=== PATIENT | female | born 1985 | race Caucasian/White ===

== ENCOUNTER 2018-11-09 06:55 | Inpatient (IN) ==
[2018-11-09] MEDS ORDERED: Ketorolac 30 MG/ML VIAL IVP ONE (07:24)
[2018-11-09] MEDS ORDERED: Piperacillin/Tazobactam 3.375 GM in Water for inj. (sterile) 20 ML IVP ONE (07:24)
[2018-11-09] MEDS ORDERED: 0.9 % Sodium Chloride 1,000 ML IVC ONE (07:24)
[2018-11-09] MEDS ORDERED: Prochlorperazine 10 MG/2 ML VIAL IVP STA (07:28)
--- NOTE | 2018-11-09 07:29 | Emergency Department Note ---
Disposition Clinical Impression: Cellulitis Qualifiers: Site of cellulitis: trunk Site of cellulitis of trunk: abdominal wall Qualified Code(s): L03.311 - Cellulitis of abdominal wall Disposition: Admitted As Inpatient Condition: Good Referrals: NONE,PCP [Primary Care Provider] - Forms: ED Satisfaction Letter Time of Disposition: 10:09 Headache HPI - General Chief Complaint: ED Headache Stated Complaint: foggy mind, heart palp, cant urinate, infection Time Seen by Provider: 11/09/18 07:10 Source: patient, family Mode of arrival: private vehicle Limitations: no limitations Nursing Notes Reviewed: Yes Vital Signs Reviewed: Yes - History of Present Illness HPI Narrative: 33F with Pmhx of hypothyroidism, fibromyalgia, hidradenitis suppurativa that was seen at this facility on Monday and dx with a UTI and cellulitis, placed on antibiotics, and has subsequently gotten worse. Pt reports worsening of neck pain, increased nausea, headache, and spreading of her stomach rash which was dx as cellulitis at her previous visit. She also notes that she feels "foggy" in her head and is having trouble processing information. Of note, she also stopped all of her medications "cold-turkey" approx 1 month ago. Pain Scale: 0 - Related Data Home Medications Medication Instructions Recorded Confirmed No Known Home Drugs 11/09/18 11/09/18 Allergies Allergy/AdvReac Type Severity Reaction Status Date / Time Sulfa (Sulfonamide Allergy Hives Verified 06/28/18 00:13 Antibiotics) gabapentin AdvReac Nightmare Verified 06/28/18 00:13 Review of Systems: In addition to that documented in the HPI above, the additional ROS was obta ined: Constitutional: Reports fevers and chills Eyes: Denies vision changes ENMT: Denies sore throat CV: Denies chest pain Resp: Denies SOB GI: Denies vomiting or diarrhea Reports nausea : Denies painful urination Reports inability to urinate MSK: Denies recent trauma Skin: Reports lower abdominal rash Neuro: Denies new numbness or tingling or weakness Reports headache Endocrine: Denies unexpected weight loss Heme: Denies bleeding disorders Headache PMH - Past Medical History Medical history: Reports: fibromyalgia, thyroid disease, other Psychiatric history: Reports: anxiety, panic disorder - Social History Smoking Status: Current some day smoker Alcohol use: Reports: none Drug use: Reports: none Physical Exam General: A&O x 3. No acute distress. Well developed, well nourished. Head: atraumatic, normocephalic. ENT: No conjunctival injection, no scleral icterus. PERRLA. EOMI. Oropharynx non- erythematous. mucous membranes moist. Neck: Supple, full ROM, midline cervical tenderness to palpation. Neuro: No focal deficits, no speech deficit, no facial droop, mentating well. BUE/BLE Str 5/5. Pulm: Lungs CTAB A/P. No wheezes, rales, ronchi. Cardio: RRR no m/r/g. Chest not tender to palpation. Abd: Soft, non-distended. Normoactive bowel sounds. Erythematous rash covering lower abdominal wall, tender to touch. Extremities: Radial pulses 2+ trell, dorsalis pedis/posterior tibialis 2+ trell. No LE edema. No cyanosis, clubbing. Skin: Other than noted above, warm, dry, intact. Psych: Appropriate mood and affect. Answers questions appropriately. Cooperative with exam. - General Limitations: no limitations General appearance: alert, in no apparent distress Course Vital Signs Temperature 99.0 F 11/09/18 06:59 Pulse Rate 99 11/09/18 06:59 Respiratory Rate 16 11/09/18 06:59 Blood Pressure 128/88 11/09/18 06:59 O2 Sat by Pulse Oximetry 97 11/09/18 06:59 Temperature 99.0 F 11/09/18 06:59 Pulse Rate 63 11/09/18 09:58 Respiratory Rate 18 11/09/18 09:58 Blood Pressure 107/58 11/09/18 09:58 O2 Sat by Pulse Oximetry 97 11/09/18 09:58 Oxygen Delivery Oxygen Delivery Room Air Headache - MDM Narrative Medical decision making narrative: 33-year-old female with complaint of increasing rash to her stomach, headache, nausea, unable to urinate. Patient was able to give a urine sample soon after arriving, urine was dark but she did not express any difficulty in urinating when giving the sample. Patient was also complaining of altered mental status when she first arrived and thought that it was Monday when it is Monday, we explored the possibility of doing a lumbar puncture to rule out meningitis, however given the patient's white blood cell count was normal and that I told her the lumbar puncture would make her headache worse tomorrow she decided that the procedure was low yield and that she did not want to pursue it at this time. We discussed the risks and benefits of the procedure and she was still confident that she did not want the lumbar puncture. Patient's white blood cell count has improved from the other day, however her rash to her stomach has gotten worse and has not responded to oral antibiotics. Patient will need to be admitted for IV antibiotics given her failure of outpatient management. Results of the workup including any imaging and/or labwork was shared with the patient at bedside. Patient was given an opportunity to ask questions at bedside and all of their concerns were addressed. Patient v erbalized understanding and agreement with plan of care. Pt remained stable while in the department. Patient was admitted to the hospitalist Dr. Roy who agreed to accept the patient to his service. - Medical Records Medical records reviewed: Yes I reviewed the patient's medical records. - Lab Data Lab results reviewed: Yes I reviewed the patient's lab results. Result diagrams: 11/09/18 07:33 11/09/18 07:33 Lab Results 11/09/18 11/09/18 11/09/18 Range/Units 07:33 07:33 07:39 WBC 7.0 (4.3-11.1) K/mcL RBC 3.71 L (3.82-4.97) M/mcL Hgb 11.8 D (11.5-15.4) g/dL Hct 34.9 L (35.3-44.9) % MCV 94.1 (83.0-100.0) fL MCH 31.8 (28.0-33.3) pg MCHC 33.8 (31.6-35.5) g/dL RDW 11.9 (11.5-14.5) % Plt Count 270 (140-400) K/mcL MPV 10.4 (9.4-12.4) fL Immature Gran % 0.4 (0-4) % Seg Neutrophils % 51.3 % Lymphocytes % 31.4 % Monocytes % 9.8 % Eosinophils % 6.2 % Basophils % 0.9 % Neutrophils # 3.6 (1.6-8.9) K/mcL Lymphocytes # 2.2 (0.6-4.6) K/mcL Monocytes # 0.7 (0.0-1.3) K/mcL Eosinophils # 0.4 (0.0-0.6) K/mcL Basophils # 0.1 (0.0-0.2) K/mcL Sodium 139 (136-145) mEq/L Potassium 3.6 (3.5-5.1) mEq/L Chloride 106 (98-107) mEq/L Carbon Dioxide 23 (23-29) mEq/L BUN 8 (6-20) mg/dL Creatinine 0.77 (0.60-1.20) mg/dL Est GFR ( Amer) > 60 (> 60) Est GFR (Non-Af Amer) > 60 (> 60) BUN/Creatinine Ratio 10 (6-26) Glucose 109 H (70-105) mg/dL Calculated Osmolality 287 (280-300) Lactic Acid (0.5-2.2) mmol/L Calcium 9.5 (8.6-10.3) mg/dL Total Bilirubin 0.3 (0.3-1.0) mg/dL Direct Bilirubin 0.0 (0.0-0.2) mg/dL Indirect Bilirubin 0.3 (0.0-1.2) mg/dL AST 20 (13-39) Units/L ALT 30 (7-52) Units/L Alkaline Phosphatase 63 (34-104) Units/L Serum Total Protein 7.1 (6.4-8.9) g/dL Albumin 4.0 (3.5-5.7) g/dL Globulin 3.1 (2.4-3.5) g/dL Albumin/Globulin Ratio 1.3 (1.1-2.2) Lipase 12 (11-82) Units/L TSH 3.728 (0.340-5.600) mcIU/mL Urine Color Yellow (Yellow) Urine Clarity Clear (Clear) Urine pH 6.0 (5.0-8.0) pH Units Ur Specific [place] 1.025 (1.010-1.025) Urine Protein Negative (Neg-Trace) mg/dL Urine Glucose (UA) Normal (Normal) mg/dL Urine Ketones Negative (Negative) mg/dL Urine Blood Moderate H (Negative) Urine Nitrite Negative (Negative) Urine Bilirubin Negative (Negative) Urine Urobilinogen Normal (Normal) mg/dL Ur Leukocyte Esterase Negative (Negative) Urine Microscopic RBC 15-30 H (0-3) per hpf Urine Microscopic WBC 5-15 H (0-3) per hpf Ur Squamous Epith Cells Many H (None-Few) per lpf Urine Bacteria None Seen (None-Few) per hpf Hyaline Casts None Seen (None-Few) per lpf Ur Culture Indicated? YES A (NO) Urine Test (Negative) 11/09/18 11/09/18 Range/Units 07:39 07:46 WBC (4.3-11.1) K/mcL RBC (3.82-4.97) M/mcL Hgb (11.5-15.4) g/dL Hct (35.3-44.9) % MCV (83.0-100.0) fL MCH (28.0-33.3) pg MCHC (31.6-35.5) g/dL RDW (11.5-14.5) % Plt Count (140-400) K/mcL MPV (9.4-12.4) fL Immature Gran % (0-4) % Seg Neutrophils % % Lymphocytes % % Monocytes % % Eosinophils % % Basophils % % Neutrophils # (1.6-8.9) K/mcL Lymphocytes # (0.6-4.6) K/mcL Monocytes # (0.0-1.3) K/mcL Eosinophils # (0.0-0.6) K/mcL Basophils # (0.0-0.2) K/mcL Sodium (136-145) mEq/L Potassium (3.5-5.1) mEq/L Chloride (98-107) mEq/L Carbon Dioxide (23-29) mEq/L BUN (6-20) mg/dL Creatinine (0.60-1.20) mg/dL Est GFR ( Amer) (> 60) Est GFR (Non-Af Amer) (> 60) BUN/Creatinine Ratio (6-26) Glucose (70-105) mg/dL Calculated Osmolality (280-300) Lactic Acid 1.0 (0.5-2.2) mmol/L Calcium (8.6-10.3) mg/dL Total Bilirubin (0.3-1.0) mg/dL Direct Bilirubin (0.0-0.2) mg/dL Indirect Bilirubin (0.0-1.2) mg/dL AST (13-39) Units/L ALT (7-52) Units/L Alkaline Phosphatase (34-104) Units/L Serum Total Protein (6.4-8.9) g/dL Albumin (3.5-5.7) g/dL Globulin (2.4-3.5) g/dL Albumin/Globulin Ratio (1.1-2.2) Lipase (11-82) Units/L TSH (0.340-5.600) mcIU/mL Urine Color (Yellow) Urine Clarity (Clear) Urine pH (5.0-8.0) pH Units Ur Specific [place] (1.010-1.025) Urine Protein (Neg-Trace) mg/dL Urine Glucose (UA) (Normal) mg/dL Urine Ketones (Negative) mg/dL Urine Blood (Negative) Urine Nitrite (Negative) Urine Bilirubin (Negative) Urine Urobilinogen (Normal) mg/dL Ur Leukocyte Esterase (Negative) Urine Microscopic RBC (0-3) per hpf Urine Microscopic WBC (0-3) per hpf Ur Squamous Epith Cells (None-Few) per lpf Urine Bacteria (None-Few) per hpf Hyaline Casts (None-Few) per lpf Ur Culture Indicated? (NO) Urine Test Negative (Negative) - EKG Data EKG attestation: Yes I reviewed and interpreted this EKG. EKG results narrative: Heart rate 91, rhythm sinus, axis normal. Intervals within normal limits. No ST segment elevation or depression noted when compared with old EKG dated 11/06/2018 EKG shows sinus tachycardia which is not present on the current study.
--- NOTE | 2018-11-09 07:39 | Emergency Department Note ---
Disposition Clinical Impression: Cellulitis Qualifiers: Site of cellulitis: trunk Site of cellulitis of trunk: abdominal wall Qualified Code(s): L03.311 - Cellulitis of abdominal wall Disposition: Admitted As Inpatient Condition: Fair Referrals: NONE,PCP [Primary Care Provider] - Forms: ED Satisfaction Letter Time of Disposition: 09:18 General Adult HPI - General Chief complaint: ED Headache Stated complaint: foggy mind, heart palp, cant urinate, infection Time Seen by Provider: 11/09/18 07:10 Source: patient, family Mode of arrival: private vehicle Limitations: no limitations Nursing Notes Reviewed: Yes Vital Signs Reviewed: Yes - History of Present Illness Pain Scale: 0 - Related Data Home Medications Medication Instructions Recorded Confirmed No Known Home Drugs 11/09/18 11/09/18 Allergies Allergy/AdvReac Type Severity Reaction Status Date / Time Sulfa (Sulfonamide Allergy Hives Verified 06/28/18 00:13 Antibiotics) gabapentin AdvReac Nightmare Verified 06/28/18 00:13 Past Medical History - Past Medical History Medical history: Reports: fibromyalgia, thyroid disease, other Psychiatric history: Reports: anxiety, panic disorder - Social History Smoking Status: Current some day smoker Smokeless Tobacco Status: No Alcohol use: Reports: none Drug use: Reports: none Physical Exam - General Limitations: no limitations General appearance: alert, in no apparent distress Course Vital Signs Temperature 99.0 F 11/09/18 06:59 Pulse Rate 99 11/09/18 06:59 Respiratory Rate 16 11/09/18 06:59 Blood Pressure 128/88 11/09/18 06:59 O2 Sat by Pulse Oximetry 97 11/09/18 06:59 Temperature 99.0 F 11/09/18 06:59 Pulse Rate 75 11/09/18 08:30 Respiratory Rate 18 11/09/18 08:30 Blood Pressure 115/64 11/09/18 08:30 O2 Sat by Pulse Oximetry 96 11/09/18 08:30 Oxygen Delivery Oxygen Delivery Room Air Medical Decision Making - [facility] Narrative Medical decision making narrative: 744 hours: I reviewed her labs I did not see any growth on her throat culture nor on her flu which was negative. We will continue the workup on her and determine best course for workup and disposition I think she will need admission since her cellulitis on her abdomen is worsening. 0832 hrs.: Patient's up and ambulatory without difficulty at this time. Labs are back and fairly unremarkable no signs of bacteria in her urine. We talked about doing a spinal tap since she was complaining of a headache and some stiffness in her neck that she has no papilledema here. She is considering that at this time. We will reassess once she has had her medications and see how she is doing and then determine best plan of care. 0918 hrs.: Spoke to her about having a spinal tap done told her about the risks and benefits of that she does not want have the test done. If she does have meningitis it would be most likely viral without any other treatments at this time so I think her decision is okay. I told her however she changes her mind were happy to do that. Due to her cellulitis. Started on IV antibiotics were in a go admit her to the hospital. - Lab Data Result diagrams: 11/09/18 07:33 11/09/18 07:33 Lab Results 11/09/18 11/09/18 11/09/18 Range/Units 07:33 07:33 07:39 WBC 7.0 (4.3-11.1) K/mcL RBC 3.71 L (3.82-4.97) M/mcL Hgb 11.8 D (11.5-15.4) g/dL Hct 34.9 L (35.3-44.9) % MCV 94.1 (83.0-100.0) fL MCH 31.8 (28.0-33.3) pg MCHC 33.8 (31.6-35.5) g/dL RDW 11.9 (11.5-14.5) % Plt Count 270 (140-400) K/mcL MPV 10.4 (9.4-12.4) fL Immature Gran % 0.4 (0-4) % Seg Neutrophils % 51.3 % Lymphocytes % 31.4 % Monocytes % 9.8 % Eosinophils % 6.2 % Basophils % 0.9 % Neutrophils # 3.6 (1.6-8.9) K/mcL Lymphocytes # 2.2 (0.6-4.6) K/mcL Monocytes # 0.7 (0.0-1.3) K/mcL Eosinophils # 0.4 (0.0-0.6) K/mcL Basophils # 0.1 (0.0-0.2) K/mcL Sodium 139 (136-145) mEq/L Potassium 3.6 (3.5-5.1) mEq/L Chloride 106 (98-107) mEq/L Carbon Dioxide 23 (23-29) mEq/L BUN 8 (6-20) mg/dL Creatinine 0.77 (0.60-1.20) mg/dL Est GFR ( Amer) > 60 (> 60) Est GFR (Non-Af Amer) > 60 (> 60) BUN/Creatinine Ratio 10 (6-26) Glucose 109 H (70-105) mg/dL Calculated Osmolality 287 (280-300) Lactic Acid (0.5-2.2) mmol/L Calcium 9.5 (8.6-10.3) mg/dL Total Bilirubin 0.3 (0.3-1.0) mg/dL Direct Bilirubin 0.0 (0.0-0.2) mg/dL Indirect Bilirubin 0.3 (0.0-1.2) mg/dL AST 20 (13-39) Units/L ALT 30 (7-52) Units/L Alkaline Phosphatase 63 (34-104) Units/L Serum Total Protein 7.1 (6.4-8.9) g/dL Albumin 4.0 (3.5-5.7) g/dL Globulin 3.1 (2.4-3.5) g/dL Albumin/Globulin Ratio 1.3 (1.1-2.2) Lipase 12 (11-82) Units/L TSH 3.728 (0.340-5.600) mcIU/mL Urine Color Yellow (Yellow) Urine Clarity Clear (Clear) Urine pH 6.0 (5.0-8.0) pH Units Ur Specific [place] 1.025 (1.010-1.025) Urine Protein Negative (Neg-Trace) mg/dL Urine Glucose (UA) Normal (Normal) mg/dL Urine Ketones Negative (Negative) mg/dL Urine Blood Moderate H (Negative) Urine Nitrite Negative (Negative) Urine Bilirubin Negative (Negative) Urine Urobilinogen Normal (Normal) mg/dL Ur Leukocyte Esterase Negative (Negative) Urine Microscopic RBC 15-30 H (0-3) per hpf Urine Microscopic WBC 5-15 H (0-3) per hpf Ur Squamous Epith Cells Many H (None-Few) per lpf Urine Bacteria None Seen (None-Few) per hpf Hyaline Casts None Seen (None-Few) per lpf Ur Culture Indicated? YES A (NO) Urine Test (Negative) 11/09/18 11/09/18 Range/Units 07:39 07:46 WBC (4.3-11.1) K/mcL RBC (3.82-4.97) M/mcL Hgb (11.5-15.4) g/dL Hct (35.3-44.9) % MCV (83.0-100.0) fL MCH (28.0-33.3) pg MCHC (31.6-35.5) g/dL RDW (11.5-14.5) % Plt Count (140-400) K/mcL MPV (9.4-12.4) fL Immature Gran % (0-4) % Seg Neutrophils % % Lymphocytes % % Monocytes % % Eosinophils % % Basophils % % Neutrophils # (1.6-8.9) K/mcL Lymphocytes # (0.6-4.6) K/mcL Monocytes # (0.0-1.3) K/mcL Eosinophils # (0.0-0.6) K/mcL Basophils # (0.0-0.2) K/mcL Sodium (136-145) mEq/L Potassium (3.5-5.1) mEq/L Chloride (98-107) mEq/L Carbon Dioxide (23-29) mEq/L BUN (6-20) mg/dL Creatinine (0.60-1.20) mg/dL Est GFR ( Amer) (> 60) Est GFR (Non-Af Amer) (> 60) BUN/Creatinine Ratio (6-26) Glucose (70-105) mg/dL Calculated Osmolality (280-300) Lactic Acid 1.0 (0.5-2.2) mmol/L Calcium (8.6-10.3) mg/dL Total Bilirubin (0.3-1.0) mg/dL Direct Bilirubin (0.0-0.2) mg/dL Indirect Bilirubin (0.0-1.2) mg/dL AST (13-39) Units/L ALT (7-52) Units/L Alkaline Phosphatase (34-104) Units/L Serum Total Protein (6.4-8.9) g/dL Albumin (3.5-5.7) g/dL Globulin (2.4-3.5) g/dL Albumin/Globulin Ratio (1.1-2.2) Lipase (11-82) Units/L TSH (0.340-5.600) mcIU/mL Urine Color (Yellow) Urine Clarity (Clear) Urine pH (5.0-8.0) pH Units Ur Specific [place] (1.010-1.025) Urine Protein (Neg-Trace) mg/dL Urine Glucose (UA) (Normal) mg/dL Urine Ketones (Negative) mg/dL Urine Blood (Negative) Urine Nitrite (Negative) Urine Bilirubin (Negative) Urine Urobilinogen (Normal) mg/dL Ur Leukocyte Esterase (Negative) Urine Microscopic RBC (0-3) per hpf Urine Microscopic WBC (0-3) per hpf Ur Squamous Epith Cells (None-Few) per lpf Urine Bacteria (None-Few) per hpf Hyaline Casts (None-Few) per lpf Ur Culture Indicated? (NO) Urine Test Negative (Negative) Attestation Statement - Attestation Attestation: This documentation is done with the assistance of Dragon dictation. Despite efforts made to ensure accuracy, there may be inaccuracies in international editorial producer or spelling and typographical errors. I examined this patient and my medical decision-making was reviewed with the Resident Physician. I agree with the documented findings, disposition and treatment plan as described except to the extent set forth below. Patient was seen and evaluated by Dr. Wright, I agree with their evaluation and management plan, I supervised care the patient's stay. Patient arrives today stating that she thinks she is getting worse infection. She was seen here earlier this week diagnosed with hidradenitis placed on Keflex and clindamycin and it is getting worse. This is across her abdomen does not go down into the groin area. She has no signs of crepitance. She also says she is feeling achy she has got a bit of a headache she does not have true meningeal signs here shows no papilledema no once been ill at home no fever here at this time. We will review her CT scan she had for here noted a check labs and get her feeling better and then determine whether she needs any further workup of a headache spinal tap or CT. Also she needs any reimaging of her abdomen she also has had decreased urination so we will check urinalysis and give her fluids. She is in agreement with this plan as is mom. I reviewed the residents documentation and agree with the residents assessment and plan of care. I have personally had face to face time with the patient. (Brief History, Brief Exam, and MDM) I personally supervised and was present for the rossi/critical portions of the following procedures completed by the resident: EKG was interpreted by the resident under my supervision, I agree with their interpretation.
[2018-11-09 07:56] LABS: Basophils # 0.1 K/mcL (0.0-0.2); Basophils % 0.9 %; Eosinophils # 0.4 K/mcL (0.0-0.6); Eosinophils % 6.2 %; Hematocrit 34.9 % (35.3-44.9); Hemoglobin 11.8 g/dL (11.5-15.4); Immature Granulocytes % 0.4 % (0-4); Lymphocytes # 2.2 K/mcL (0.6-4.6); Lymphocytes % 31.4 %; Mean Corpuscular HGB Conc 33.8 g/dL (31.6-35.5); Mean Corpuscular Hemoglobin 31.8 pg (28.0-33.3); Mean Corpuscular Volume 94.1 fL (83.0-100.0); Mean Platelet Volume 10.4 fL (9.4-12.4); Monocytes # 0.7 K/mcL (0.0-1.3); Monocytes % 9.8 %; Neutrophils # 3.6 K/mcL (1.6-8.9); Platelet Count 270 K/mcL (140-400); Red Blood Count 3.71 M/mcL (3.82-4.97); Red Cell Distribution Width 11.9 % (11.5-14.5); Segmented Neutrophils % 51.3 %
[2018-11-09 08:16] LABS: Bilirubin,Urine Negative (Negative); Blood,Urine Moderate (Negative); Clarity,Urine Clear (Clear); Color,Urine Yellow (Yellow); Glucose,Urine (UA) Normal (Normal); Ketones,Urine Negative (Negative); Leukocyte Esterase,Urine Negative (Negative); Nitrite,Urine Negative (Negative); Protein,Urine Negative (Neg-Trace); Specific Gravity,Urine 1.025 (1.010-1.025); Urobilinogen,Urine Normal (Normal)
[2018-11-09 08:18] LABS: Alanine Aminotransferase 30 Units/L (7-52); Albumin/Globulin Ratio 1.3 (1.1-2.2); Alkaline Phosphatase 63 Units/L (34-104); Aspartate Amino Transferase 20 Units/L (13-39); BUN/Creatinine Ratio 10 (6-26); Bilirubin,Indirect 0.3 mg/dL (0.0-1.2); Bilirubin,Total 0.3 mg/dL (0.3-1.0); Blood Urea Nitrogen 8 mg/dL (6-20); Calcium 9.5 mg/dL (8.6-10.3); Carbon Dioxide 23 mEq/L (23-29); Chloride 106 mEq/L (98-107); Globulin 3.1 g/dL (2.4-3.5); Glucose 109 mg/dL (70-105); Lipase 12 Units/L (11-82); Osmolality,Calculated 287 (280-300); Potassium 3.6 mEq/L (3.5-5.1); Sodium 139 mEq/L (136-145); Total Protein 7.1 g/dL (6.4-8.9); eGFR For African Americans > 60 (> 60); eGFR For Non-African Americans > 60 (> 60)
[2018-11-09 08:20] LABS: Bacteria,Urine None Seen per hpf (None-Few); Hyaline Casts,Urine None Seen per lpf (None-Few); RBC,Urine 15-30 per hpf (0-3); Squamous Epithelial Cell,Urine Many per lpf (None-Few)
[2018-11-09 08:30] LABS: Thyroid Stimulating Hormone 3.728 mcIU/mL (0.340-5.600)
[2018-11-09] MEDS ORDERED: Naloxone 0.4 MG/ML INJ IVP PRN (12:47)
[2018-11-09] MEDS ORDERED: Acetaminophen 325 MG TABLET PO PRN (12:47)
[2018-11-09] MEDS: Ondansetron 4 MG/2 ML VIAL IVP PRN (15:00)
[2018-11-09] MEDS: *HR* HYDROcodone/Acet 5/325 mg TABLET PO PRN (15:00)
--- NOTE | 2018-11-09 15:23 | Internal Med History&Physical ---
Date of Encounter: 11/09/18 Time of Encounter: 15:23 Internal Medicine - H&P: HPI Chief complaint: Abdominal wall cellulities Admitted From: Emergency Dept Plans for Post Hospital Care: Home History of present illness: Ms. Ron is a 33 year old female with no significant past medical history presented to ER complaining about a progressively worsening lower abdominal wall erythema and pain. She noticed mild erythema in lower abdomen wall region on Monday, which is progressively worsening now. She denied any trauma. She denied any previous MRSA infections. She denied any similar infections in the past. She also c/o head ache and neck pain since this abdominal pain started. She denied any confusion / nausea / vomitings / visual changes. Past Med Surg Social Fam HX - Past Medical History Medical history: fibromyalgia, thyroid disease, other Additional medical history: tachycardia, anemia Psychiatric history: anxiety, panic disorder - Past Surgical History Surgical History: hysterectomy Additional surgical history: back surgery - Social History Smoking Status: Current some day smoker Packs per day: 1/ Smokeless Tobacco Status: No Alcohol use: none Drug use: none - Family History Mother Hx Family Cardiac Disorders: No Hx Family Respiratory Disorders: No Hx Family Cancer: Yes (skin cancer) Hx Family GI Disorders: No Hx Family Genitourinary Disorders: No Hx Family Endocrine Disorder: Yes (thyroid) Hx Family Musculoskeletal Disorders: No Hx Family Neuromuscular Disorders: No Hx Family Neurologic Disorders: No Hx Family HEENT Disorders: No Hx Family Autoimmune Disorders: No Hx Family Reproductive Disorders: No Hx Family Psychosocial Disorders: No Father Hx Family Cardiac Disorders: Yes (5 stents) Hx Family Respiratory Disorders: No Hx Family Cancer: No Hx Family GI Disorders: No Hx Family Genitourinary Disorders: No Hx Family Endocrine Disorder: Yes (DM, thyroid) Hx Family Musculoskeletal Disorders: No Hx Family Neuromuscular Disorders: No Hx Family Neurologic Disorders: No Hx Family HEENT Disorders: No Hx Family Autoimmune Disorders: No Hx Family Reproductive Disorders: No Hx Family Psychosocial Disorders: No Internal Medicine - H&P: Meds No Known Home Drugs 11/09/18 [History] Allergy/AdvReac Type Severity Reaction Status Date / Time Sulfa (Sulfonamide Allergy Hives Verified 06/28/18 00:13 Antibiotics) gabapentin AdvReac Nightmare Verified 06/28/18 00:13 All Systems PM: A 10-system review of systems was performed and is negative for pertinent findings except as documented above in the HPI. Review of systems: All the systems are reviewed everything is benign except the systems and symptoms I mentioned in the history of present illness - Constitutional Vitals: Temp Pulse Resp BP Pulse Ox 98.2 F 74 16 115/65 98 11/09/18 11:11 11/09/18 11:11 11/09/18 11:11 11/09/18 11:11 11/09/18 11:11 General appearance: Present: cooperative, mild distress (with pain), A&O X 3, answers questions appropriately Exam: a - Head Head exam: Present: atraumatic, normal inspection - Neck Neck exam general surgery: Present: normal inspection, supple - Respiratory Respiratory exam: Present: decreased breath sounds. Absent: rales, respiratory distress, rhonchi, wheezes - Cardiovascular Cardiovascular exam: Present: RRR, +S1, +S2. Absent: tachycardia - GI/Abdominal GI/Abdominal exam: Present: distended, normal bowel sounds, soft, tenderness (lower abdominal wall). Absent: guarding, rebound, rigid Additional comments: mild to moderate erythema noticed in streaks over lower abd wall region b/l, no open wound, no palpable mass noticed. - Extremities Exam Extremities exam: Present: normal inspection. Absent: calf tenderness, pedal edema, tenderness - Back Exam Back exam: Absent: CVA tenderness (L), CVA tenderness (R) - Neurological Exam Neurological exam: Present: alert, oriented X3, strengths equal and symetr throughout. Absent: motor sensory deficit, pronater drift, facial droop, speech deficit - Psychiatric Psychiatric exam: Present: normal affect, normal mood - Skin Skin exam: Absent: rash Internal Med - H&P Results - Labs CBC & Chem 7: 11/09/18 07:33 11/09/18 07:33 Labs: Short CBC 11/09/18 Range/Units 07:33 WBC 7.0 (4.3-11.1) K/mcL Hgb 11.8 D (11.5-15.4) g/dL Hct 34.9 L (35.3-44.9) % Plt Count 270 (140-400) K/mcL Neutrophils # 3.6 (1.6-8.9) K/mcL BMP 11/09/18 07:33 Sodium 139 Potassium 3.6 Chloride 106 Carbon Dioxide 23 BUN 8 Creatinine 0.77 Glucose 109 H Calcium 9.5 Liver Function 11/09/18 Range/Units 07:33 Total Bilirubin 0.3 (0.3-1.0) mg/dL Direct Bilirubin 0.0 (0.0-0.2) mg/dL AST 20 (13-39) Units/L ALT 30 (7-52) Units/L Alkaline Phosphatase 63 (34-104) Units/L Albumin 4.0 (3.5-5.7) g/dL Urine 11/09/18 Range/Units 07:39 Urine Color Yellow (Yellow) Urine Clarity Clear (Clear) Urine pH 6.0 (5.0-8.0) pH Units Ur Specific [place] 1.025 (1.010-1.025) Urine Protein Negative (Neg-Trace) mg/dL Urine Glucose (UA) Normal (Normal) mg/dL - Assessment and Plan (1) Cellulitis of abdominal wall Current Visit: No Status: Acute Assessment and plan: Place the pt into Med Surg for observation No signs of abscess.. No open wound noticed seems to be she does have panniculitis started her on empirical abx IV Ancef Cont symptomatic and supportive care blood cultures were drawn in the ER (2) Abnormal urinalysis Current Visit: Yes Status: Acute Assessment and plan: UA is concerning for UTI on empirical abx IV Ancef (3) Headache Current Visit: Yes Status: Acute Assessment and plan: Mostly migraine headaches started her on anti-inflammatory / pain medication as needed Qualifiers: Headache type: unspecified Headache chronicity pattern: acute headache Intractability: intractable Qualified Code(s): R51 - Headache (4) Morbid obesity Current Visit: Yes Status: Acute Assessment and plan: Counseled to lose weight - Time Spent With Patient Total time spent is greater than 50% in coordination of care (as documented) at patient's floor/unit and/or counseling patient:
[2018-11-09] MEDS: ceFAZolin 1,000 MG in Water for inj. (sterile) 10 ML IVP SCH (17:30)
[2018-11-09] MEDS: Ibuprofen 600 MG TABLET PO PRN (17:31)
[2018-11-09] MEDS ORDERED: Ketorolac 15 MG/ML VIAL IVP ONE (21:10)
[2018-11-10] MEDS: ceFAZolin 1,000 MG in Water for inj. (sterile) 10 ML IVP SCH ×3 (01:07→16:16)
[2018-11-10 02:12] LABS: Basophils % 0.7 %; Eosinophils # 0.3 K/mcL (0.0-0.6); Hematocrit 34.4 % (35.3-44.9); Hemoglobin 11.1 g/dL (11.5-15.4); Immature Granulocytes % 0.5 % (0-4); Lymphocytes # 1.6 K/mcL (0.6-4.6); Lymphocytes % 26.2 %; Mean Corpuscular HGB Conc 32.3 g/dL (31.6-35.5); Mean Corpuscular Hemoglobin 31.8 pg (28.0-33.3); Mean Corpuscular Volume 98.6 fL (83.0-100.0); Mean Platelet Volume 10.6 fL (9.4-12.4); Monocytes # 0.7 K/mcL (0.0-1.3); Monocytes % 11.6 %; Neutrophils # 3.4 K/mcL (1.6-8.9); Platelet Count 231 K/mcL (140-400); Red Blood Count 3.49 M/mcL (3.82-4.97); Red Cell Distribution Width 11.9 % (11.5-14.5)
[2018-11-10 02:30] LABS: Calcium 8.8 mg/dL (8.6-10.3); Potassium 3.9 mEq/L (3.5-5.1)
[2018-11-10] MEDS: *HR* HYDROcodone/Acet 5/325 mg TABLET PO PRN ×3 (06:00→21:21)
--- NOTE | 2018-11-10 06:43 | Electrocardiograph Report ---
[facility] Test Date: 2018-11-09 Pat Name: Hailey Ron Department: EXAM19 Room: 3B47 Gender: F Program Counselor: : 1985 Requested By: Lauren Puri Order Number: [id number] Reading MD: Toni Barber Measurements Intervals [place] Rate: 91 P: 49 LA: 135 QRS: 45 QRSD: 80 T: 30 QT: 372 QTc: 458 Interpretive Statements Sinus rhythm Electronically Signed On 11-10-2018 6:42:11 EDT by Toni Barber
[2018-11-10] MEDS ORDERED: Ringers Solution, Lactated 1,000 ML IVC SCH (07:45)
[2018-11-10] MEDS: Ondansetron 4 MG/2 ML VIAL IVP PRN ×2 (09:01→23:16)
[2018-11-10] MEDS ORDERED: SUMAtriptan succinate 25 MG TABLET PO PRN (13:44)
--- NOTE | 2018-11-10 13:49 | Internal Med Progress Note ---
Hospitalist Progress Note - Encounter Date of Encounter: 11/10/18 Time of Encounter: 13:45 - Subjective Interval History: I have seen and evaluated the patient at bedside. patient reported a Hx of migrane headache, reported neck pain, pain is crampy in nature, more significant at the base of the scalp. denies nausea, vomiting, focal neurological changes. - Exam Vitals: Temp Pulse Resp BP Pulse Ox 98.6 F 77 16 97/65 98 11/10/18 08:15 11/10/18 08:15 11/10/18 08:15 11/10/18 08:15 11/10/18 09:15 Exam: Vitals: Reviewed General: Alert and oriented x4. In mild distress due to headache. Skin: erythema on the ant abdominal wall. Cardiovascular: RRR,normal S1 & S2, no rubs, murmurs or gallops. Lungs: CTA b/l, no wheezes or crackles. Abdomen: Soft, non-tender, no rigidity. Extremities: No edema Neurological: No focal neurological abnormalities. and no meningeal signs. Rest of the physical exam is non contributory - Assessment and Plan (1) Cellulitis of abdominal wall Current Visit: No Status: Acute Assessment and Plan: possible paniculitis. continue cefazolin 1gm/IV Q8HRs [place] 5/325mg/PO Q6HR PRN for pain control. (2) Headache Current Visit: Yes Status: Chronic Assessment and Plan: patient with Hx odf migraine headache. On rizatriptan 5mg/PO PRN as outpatient started on sumatriptan 25mg Q2HR PRN for headache. cyclobenzaprine 10mg/PO TID for neck spasms. (3) Morbid obesity Current Visit: Yes Status: Acute (4) AL (acute kidney injury) Current Visit: Yes Status: Acute Assessment and Plan: started on gentle IV fluids hydration. will reassess kidney function tomorrow morning. DVT Prophylaxis: Heparin subq. - Summary of Assessment and Plan Summary of Assessment and Plan: Patient to remain in the hospital due to AL on IV hydration and cellulitis on broad spectrum IV antibiotics. - Time Spent with Patient Total time spent is greater than 50% in coordination of care (as documented) at patient's floor/unit and/or counseling patient: Greater than 35 minutes (45) Plan of Care Discussed with: patient (her dad and the nurse.) Internal Medicine: Result - Labs CBC & Chem 7: 11/10/18 01:22 11/10/18 01:22 Labs: Short CBC 11/10/18 Range/Units 01:22 WBC 6.0 (4.3-11.1) K/mcL Hgb 11.1 L (11.5-15.4) g/dL Hct 34.4 L (35.3-44.9) % Plt Count 231 (140-400) K/mcL Neutrophils # 3.4 (1.6-8.9) K/mcL BMP 11/10/18 01:22 Sodium 139 Potassium 3.9 Chloride 109 H Carbon Dioxide 20 L BUN 14 Creatinine 1.89 H Glucose 83 Calcium 8.8 Consult Discharge Plan - Plan Referrals: NONE,PCP [Primary Care Provider] - (2) Headache Qualifiers: Headache type: unspecified Headache chronicity pattern: acute headache Intractability: intractable Qualified Code(s): R51 - Headache
[2018-11-11] MEDS: Ibuprofen 600 MG TABLET PO PRN (00:46)
[2018-11-11] MEDS: ceFAZolin 1,000 MG in Water for inj. (sterile) 10 ML IVP SCH ×2 (00:56→11:45)
[2018-11-11 02:52] LABS: Calcium 8.6 mg/dL (8.6-10.3); Magnesium 1.9 mg/dL (1.6-2.6); Phosphorous 6.2 mg/dL (2.7-4.5); Potassium 3.8 mEq/L (3.5-5.1)
[2018-11-11] MEDS ORDERED: 0.9 % Sodium Chloride 1,000 ML IVC SCH (07:30)
--- NOTE | 2018-11-11 08:48 | Internal Med Progress Note ---
Hospitalist Progress Note - Encounter Date of Encounter: 11/11/18 Time of Encounter: 08:44 - Subjective Interval History: I have seen and evaluated the patient at bedside. Patient reporting mild headache, denies nausea, vomiting, or visual changes. reported she believes the erythema on the abdominal wall is extending. denies abdominal wall tenderness. - Exam Vitals: Temp Pulse Resp BP Pulse Ox 98.1 F 54 14 98/69 98 11/11/18 04:01 11/11/18 04:01 11/11/18 04:01 11/11/18 04:01 11/11/18 04:01 Exam: Vitals: Reviewed General: Alert and oriented x4. In no distress but reported headache. Cardiovascular: RRR,normal S1 & S2, no rubs, murmurs or gallops. Lungs: CTA b/l, no wheezes or crackles. Abdomen: Soft, non-tender, no rigidity. NABS in all 4 quadrants. Extremities: No edema Neurological: No focal neurological abnormalities. No meningeal signs. Rest of the physical exam is non contributory - Assessment and Plan (1) Cellulitis of abdominal wall Current Visit: No Status: Acute Assessment and Plan: Patient stated the erythema on the abdominal wall is extending. No abdominal wall tenderness, mildly warmth to palpation. Plan: will broaden IV antibiotics coverage dc cefazolin 1gm/IV Q8HRs started on piperacillin/tazobactam 3.375mg/IV Q8HRS c/w norco 5/325mg/PO Q6HR PRN for pain control. (2) Headache Current Visit: Yes Status: Chronic Assessment and Plan: patient reporting mild headache. dc sumatriptam. started on fioricet 1tab Q6HRs PRN. (3) Morbid obesity Current Visit: Yes Status: Acute (4) AL (acute kidney injury) Current Visit: Yes Status: Acute Assessment and Plan: slightly worsening AL, possible acute interstitial nephritis? Plan c/w IV hydration. 0.9%NS@75ml/hr ua for pyuria, hematuria, and white cell casts urine eosinophils. will re-assess kidney function tomorrow morning. DVT Prophylaxis: c/w heparin subq - Summary of Assessment and Plan Summary of Assessment and Plan: Patient to remain in the hospital due to AL on IV fluids. - Time Spent with Patient Total time spent is greater than 50% in coordination of care (as documented) at patient's floor/unit and/or counseling patient: Greater than 35 minutes (40) Plan of Care Discussed with: patient (and the nurse.) Internal Medicine: Result - Labs CBC & Chem 7: 11/10/18 01:22 11/11/18 02:15 Labs: BMP 11/11/18 02:15 Sodium 140 Potassium 3.8 Chloride 110 H Carbon Dioxide 19 L BUN 17 Creatinine 2.76 H Glucose 100 Calcium 8.6 Consult Discharge Plan - Plan Referrals: NONE,PCP [Primary Care Provider] - (2) Headache Qualifiers: Headache type: unspecified Headache chronicity pattern: acute headache Intractability: intractable Qualified Code(s): R51 - Headache
[2018-11-11] MEDS: Acetaminophen/Butalbital/CaffeineTABLET PO PRN ×3 (09:09→21:12)
[2018-11-11] MEDS: Piperacillin/Tazobactam 3.375 GM in 0.9 % Sodium Chloride Mini Bag 100 ML IVPB SCH ×2 (09:10→15:10)
[2018-11-11] MEDS: Ondansetron 4 MG/2 ML VIAL IVP PRN (16:44)
[2018-11-11 16:46] LABS: Bilirubin,Urine Negative (Negative); Blood,Urine Trace (Negative); Clarity,Urine Cloudy (Clear); Color,Urine Yellow (Yellow); Glucose,Urine (UA) Normal (Normal); Ketones,Urine Negative (Negative); Leukocyte Esterase,Urine Negative (Negative); Nitrite,Urine Negative (Negative); Protein,Urine Negative (Neg-Trace); Urobilinogen,Urine Normal (Normal)
[2018-11-11 16:47] LABS: Potassium,Urine 6.2 mEq/L; Sodium, Urine 58.8 mEq/L
[2018-11-11 16:48] LABS: Bacteria,Urine None Seen per hpf (None-Few); Hyaline Casts,Urine None Seen per lpf (None-Few); Squamous Epithelial Cell,Urine Many per lpf (None-Few); WBC,Urine 0-3 per hpf (0-3)
[2018-11-11 18:12] LABS: Adenovirus F 40/41 PCR Not detected (Not detect); Astrovirus PCR Not detected (Not detect); C.difficile Toxin A/B Gene PCR Not detected (Not detect); Campylobacter by PCR Not detected (Not detect); Cryptosporidium by PCR Not detected (Not detect); Cyclospora cayetanensis PCR Not detected (Not detect); E. coli O157 by PCR Not detected (Not detect); Entamoeba histolytica PCR Not detected (Not detect); Enteroaggregative E.coli(EAEC) Not detected (Not detect); Enteropathogenic E.coli(EPEC) Not detected (Not detect); Enterotoxigenic E.coli (ETEC) Not detected (Not detect); Giardia lamblia PCR Not detected (Not detect); Norovirus GI/GII PCR Not detected (Not detect); Plesiomonas shigelloides PCR Not detected (Not detect); Rotavirus A PCR Not detected (Not detect); Salmonella PCR Not detected (Not detect); Sapovirus PCR Not detected (Not detect); Shig/EnteroinvasiveE coli EIEC Not detected (Not detect); Shigalike tox-prod E coli STEC Not detected (Not detect); Vibrio PCR Not detected (Not detect); Vibrio cholerae PCR Not detected (Not detect); Yersinia enterocolitica PCR Not detected (Not detect)
[2018-11-12] MEDS: Piperacillin/Tazobactam 3.375 GM in 0.9 % Sodium Chloride Mini Bag 100 ML IVPB SCH ×3 (01:10→17:17)
[2018-11-12 05:34] LABS: Calcium 9.1 mg/dL (8.6-10.3); Phosphorous 5.3 mg/dL (2.7-4.5); Potassium 3.7 mEq/L (3.5-5.1)
[2018-11-12] MEDS: Acetaminophen/Butalbital/CaffeineTABLET PO PRN ×2 (06:44→15:32)
[2018-11-12] MEDS ORDERED: Ringers Solution, Lactated 1,000 ML IVC SCH (07:45)
[2018-11-12] MEDS ORDERED: 0.9 % Sodium Chloride 1,000 ML IVC SCH (08:45)
--- NOTE | 2018-11-12 09:58 | Internal Med Progress Note ---
Hospitalist Progress Note - Encounter Date of Encounter: 11/12/18 Time of Encounter: 09:56 - Subjective Interval History: I have seen and evaluated the patient at bedside. Patient reported feeling better, but still reporting some muscle soreness on the occipital area of her scalp, reproducible to tough. denies chest pain, nausea or vomiting. denies vision changes - Exam Vitals: Temp Pulse Resp BP Pulse Ox 98.4 F 60 15 117/73 98 11/12/18 07:28 11/12/18 07:28 11/12/18 07:28 11/12/18 07:28 11/12/18 07:28 Exam: Vitals: Reviewed General: Alert and oriented x4. In no distress but reported headache. Cardiovascular: RRR,normal S1 & S2, no rubs, murmurs or gallops. Lungs: CTA b/l, no wheezes or crackles. Abdomen: Soft, non-tender, no rigidity. NABS in all 4 quadrants. erythema on the ant wall of the abdomen clearing out Extremities: No edema Neurological: No focal neurological abnormalities. No meningeal signs. Rest of the physical exam is non contributory - Assessment and Plan (1) AL (acute kidney injury) Current Visit: Yes Status: Acute Assessment and Plan: kidney function slightly improving. c/w IV hydration for the next 24 hours. on 0.9NS@75ml/hr x2 litters will re-assess kidney function tomorrow morning. avoid nephrotoxic medications. (2) Cellulitis of abdominal wall Current Visit: No Status: Acute Assessment and Plan: erythema on the ant wall of the abdomen, is fading. No abdominal wall tenderness, mildly warmth to palpation. blood culture No growth to date Plan: c/w piperacillin/tazobactam 3.375mg/IV Q8HRS On norco 5/325mg/PO Q6HR PRN for pain control. (3) Headache Current Visit: Yes Status: Chronic Assessment and Plan: denies headache today. denies nausea or vomiting c/w fioricet 1tab PO Q6HRs. (4) Morbid obesity Current Visit: Yes Status: Acute DVT Prophylaxis: Intermittent pneumatic compression for dvt prophylaxis. - Summary of Assessment and Plan Summary of Assessment and Plan: Patient to remain in the hospital due to AL, on IV hydration. - Time Spent with Patient Total time spent is greater than 50% in coordination of care (as documented) at patient's floor/unit and/or counseling patient: Greater than 35 minutes (40) Plan of Care Discussed with: patient Internal Medicine: Result - Labs CBC & Chem 7: 11/10/18 01:22 11/12/18 04:35 Labs: BMP 11/12/18 04:35 Sodium 142 Potassium 3.7 Chloride 107 Carbon Dioxide 22 L BUN 16 Creatinine 2.50 H Glucose 85 Calcium 9.1 Urine 11/11/18 Range/Units 15:37 Urine Color Yellow (Yellow) Urine Clarity [place] A (Clear) Urine pH 6.0 (5.0-8.0) pH Units Ur Specific [place] 1.010 (1.010-1.025) Urine Protein Negative (Neg-Trace) mg/dL Urine Glucose (UA) Normal (Normal) mg/dL Consult Discharge Plan - Plan Referrals: NONE,PCP [Primary Care Provider] - (3) Headache Qualifiers: Headache type: unspecified Headache chronicity pattern: acute headache Intractability: intractable Qualified Code(s): R51 - Headache
[2018-11-12] MEDS: *HR* HYDROcodone/Acet 5/325 mg TABLET PO PRN ×2 (11:48→21:26)
[2018-11-12] MEDS: Ondansetron 4 MG/2 ML VIAL IVP PRN (21:26)
[2018-11-13] MEDS: Piperacillin/Tazobactam 3.375 GM in 0.9 % Sodium Chloride Mini Bag 100 ML IVPB SCH ×4 (00:08→23:41)
[2018-11-13] MEDS: Acetaminophen/Butalbital/CaffeineTABLET PO PRN ×3 (00:14→21:06)
[2018-11-13 05:43] LABS: Calcium 9.3 mg/dL (8.6-10.3); Magnesium 1.9 mg/dL (1.6-2.6); Phosphorous 6.3 mg/dL (2.7-4.5); Potassium 3.9 mEq/L (3.5-5.1)
[2018-11-13] MEDS: Ondansetron 4 MG/2 ML VIAL IVP PRN ×2 (08:22→16:29)
[2018-11-13] MEDS: *HR* HYDROcodone/Acet 5/325 mg TABLET PO PRN ×3 (08:23→23:41)
[2018-11-13] MEDS ORDERED: Loperamide 1 MG/5 ML UDC PO PRN (09:58)
--- NOTE | 2018-11-13 10:01 | Internal Med Progress Note ---
Hospitalist Progress Note - Encounter Date of Encounter: 11/13/18 Time of Encounter: 09:59 - Subjective Interval History: I have seen and evaluated the patient at bedside. Patient denies headache for the past couple of days and denies neck stiffness of muscle spams. denies nausea or vomiting but reports loose stool. - Exam Vitals: Temp Pulse Resp BP Pulse Ox 98.6 F 53 17 114/76 97 11/13/18 03:57 11/13/18 03:57 11/13/18 03:57 11/13/18 03:57 11/13/18 03:57 Exam: Vitals: Reviewed General: Alert and oriented x4. In no distress but reported headache. Cardiovascular: RRR,normal S1 & S2, no rubs, murmurs or gallops. Lungs: CTA b/l, no wheezes or crackles. Abdomen: Soft, non-tender, no rigidity. NABS in all 4 quadrants. erythema on the ant wall of the abdomen almost completely resolved. Extremities: No edema Neurological: No focal neurological abnormalities. Rest of the physical exam is non contributory - Assessment and Plan (1) AL (acute kidney injury) Current Visit: Yes Status: Acute Assessment and Plan: kidney function continues to improve. increase IV fluids 0.9%NS@125ml/hr will reassess kidney function tomorrow morning avoid nephrotoxic medications (2) Cellulitis of abdominal wall Current Visit: No Status: Acute Assessment and Plan: erythema on the anterior abdominal wall resolving. c/w IV antibiotics for the next 24 hours (3) Headache Current Visit: Yes Status: Chronic Assessment and Plan: Reported not having a headache for the past 48 hours. on fioricet 1tab PO Q6HRs. (4) Morbid obesity Current Visit: Yes Status: Acute (5) Loose stools Current Visit: Yes Status: Acute Assessment and Plan: non-infectious. GI panel negative. started on loperamide 1mg/PO QID. DVT Prophylaxis: patient low risk for DVT, encourage ambulation. Intermittent pneumatic compressions for DVT prophylaxis. - Summary of Assessment and Plan Summary of Assessment and Plan: Patient to remain in the hospital due to AL on IV hydration. - Time Spent with Patient Total time spent is greater than 50% in coordination of care (as documented) at patient's floor/unit and/or counseling patient: Greater than 35 minutes (40) Plan of Care Discussed with: patient (her dad and the nurse.) Internal Medicine: Result - Labs CBC & Chem 7: 11/10/18 01:22 11/13/18 04:52 Labs: BMP 11/13/18 04:52 Sodium 142 Potassium 3.9 Chloride 106 Carbon Dioxide 23 BUN 15 Creatinine 2.20 H Glucose 95 Calcium 9.3 Consult Discharge Plan - Plan Referrals: NONE,PCP [Primary Care Provider] - (3) Headache Qualifiers: Headache type: unspecified Headache chronicity pattern: acute headache Intractability: intractable Qualified Code(s): R51 - Headache
[2018-11-13] MEDS: 0.9 % Sodium Chloride 1,000 ML IVC SCH ×3 (14:02→23:40)
[2018-11-14 01:58] LABS: Calcium 9.2 mg/dL (8.6-10.3); Magnesium 1.6 mg/dL (1.6-2.6); Phosphorous 5.2 mg/dL (2.7-4.5); Potassium 3.9 mEq/L (3.5-5.1)
[2018-11-14] MEDS: Acetaminophen/Butalbital/CaffeineTABLET PO PRN ×2 (04:34→14:06)
[2018-11-14 07:50] VITALS: BP 140/84
[2018-11-14] MEDS: *HR* HYDROcodone/Acet 5/325 mg TABLET PO PRN (09:34)
[2018-11-14] MEDS: Piperacillin/Tazobactam 3.375 GM in 0.9 % Sodium Chloride Mini Bag 100 ML IVPB SCH (09:34)
[2018-11-14] MEDS ORDERED: Ringers Solution, Lactated 500 ML IVC ONE (11:33)
--- NOTE | 2018-11-14 11:33 | Discharge Summary ---
Date of Encounter: 11/14/18 Time of Encounter: 11:30 - Discharge Diagnosis (1) Cellulitis of abdominal wall Priority: Primary Status: Inactive (2) AL (acute kidney injury) Priority: Secondary Status: Acute (3) Headache Priority: Secondary Status: Chronic Qualifiers: Headache type: unspecified Headache chronicity pattern: acute headache Intractability: not intractable Qualified Code(s): R51 - Headache (4) Morbid obesity Priority: Secondary Status: Acute (5) Loose stools Priority: Secondary Status: Acute Hospital course: Ms. Ron is a 33 year old female with history of morbid obesity presented with severe abdominal wall cellulitis complicated by severe pain and systemic symptoms of infection. She latest improved with IV antibiotics. Hospital course complicated by AL that was likely a result of acute infection and concurrent NSAID use for pain control. Improved with IVF and discontinuation of NSAIDs. Also had headache and neck stiffness, however, this was present and improved over the course of 8 days so unlikely meningitis and has been improving with just symptomatic relief. Patient was discharged to finish a course of doxycycline. She will need to follow-up with PCP on Monday to get renal function rechecked. - Time Spent with Patient Total time spent providing and/or coordinating discharge services: 47 minutes Time spent: Greater than 30 minutes - Discharge Medications Prescriptions: New Cyclobenzaprine [Flexeril] 10 mg PO TID PRN #30 tablet PRN Reason: Spasms HYDROcodone/Acet 5/325 mg [[place] 5-325 mg] 1 tab PO Q6HR PRN 7 Days #10 tablet PRN Reason: Moderate Pain Doxycycline 100 mg PO BID #6 capsule Home Medications: Cyclobenzaprine [Flexeril] 10 mg PO TID PRN #30 tablet 11/14/18 [Rx] Doxycycline 100 mg PO BID #6 capsule 11/14/18 [Rx] HYDROcodone/Acet 5/325 mg [[place] 5-325 mg] 1 tab PO Q6HR PRN 7 Days #10 tablet 11/14/18 [Rx] Allergies/Adverse Reactions: Allergy/AdvReac Type Severity Reaction Status Date / Time Sulfa (Sulfonamide Allergy Hives Verified 11/10/18 10:13 Antibiotics) gabapentin AdvReac Nightmare Verified 11/10/18 10:13 Date of admission: 11/12/18 14:23 Primary care physician: PCP NONE - Constitutional Vitals: Temp Pulse Resp BP Pulse Ox 97.7 F 47 16 140/84 99 11/14/18 07:49 11/14/18 07:49 11/14/18 07:49 11/14/18 07:49 11/14/18 07:49 General appearance: Present: cooperative, mild distress (with pain), A&O X 3, answers questions appropriately Exam: General: Ill-appearing and in no acute distress HEENT: No erythema of posterior pharynx. No exudates. Lymphatics: No mandibular or cervical lymphadenopathy Cardiovascular: RRR. No murmurs. No chest wall tenderness. Lungs: Clear to auscelltation bilaterally. Regular chest rise. Abdomen: Non-tender. No rebound or gaurding. Nl bowel sounds. Extremities: No edema. 2+ pulses radial and pedal pulses Skin: No rahses, abrasions, or contusions. Nl cap refill. Psych: Nl attention. A&Ox3 Neuro: Mild tenderness of muscles of neck. cd mixer helper II-XII intact. 5/5 strength. Sensation to light touch and pinprick intact. - Patient Status Disposition: Home, Self-Care Functional capacity at discharge: independent ambulation Overall status at discharge: patient is progressing back to baseline - Discharge Instructions Follow Up With: Betsey Varags, EVER [Advanced Practice Nurse] - NONE,PCP [Primary Care Provider] -
== END 2018-11-14 14:46 | disposition home or self-care (01) | DRG 383 ==
LOC: EMEROOARM 06:55 → 3BNU 06:55 → SUATTDRO 10:21 → 3BNU 11:00
PROVIDERS: ADMIT Internal Medicine; ATTEND Internal Medicine